=== PATIENT | male | born 1945 | race Caucasian/White ===

== ENCOUNTER 2018-02-06 23:41 | Emergency (ER) | payer OTHER ==
[~2018-02-06] VITALS: Ht 170.2 cm; Wt 72.6 kg
[~2018-02-06 23:41] MED LIST: GLYB1.257; [UNRECOGNIZED DRUG - OTHER]
[2018-02-07 00:02] VITALS: BP 114/73
== END 2018-02-07 02:36 | disposition left against medical advice (07) ==
LOC: ER 23:44
DX: M25.551 Pain in right hip (principal); M54.9 Dorsalgia, unspecified; Z53.21 Procedure and treatment not carried out due to patient leaving prior to being seen by health care provider
CPT/HCPCS: 72131; 73700

== ENCOUNTER 2018-02-07 07:43 | Emergency (ER) | payer OTHER ==
[~2018-02-07] VITALS: Ht 177.8 cm; Wt 74.8 kg
[2018-02-07 08:23] VITALS: BP 118/63
[2018-02-07] MEDS ORDERED: KETOROLAC TROMETH 30 MG/ML 1ML VIAL IM ONE (09:00)
== END 2018-02-07 09:45 | disposition home or self-care (01) ==
LOC: ER 07:46
DX: S39.012A Strain of muscle, fascia and tendon of lower back, initial encounter (principal); M48.061 Spinal stenosis, lumbar region without neurogenic claudication; N28.1 Cyst of kidney, acquired; N28.9 Disorder of kidney and ureter, unspecified; W18.39XA Other fall on same level, initial encounter; Y93.89 Activity, other specified; Y99.8 Other external cause status; Y92.89 Other specified places as the place of occurrence of the external cause
CPT/HCPCS: 96372; 99283; J1885